=== PATIENT | female | born 1950 | race Caucasian/White ===

== ENCOUNTER → 2017-06-29 | Outpatient (CLI) | payer MEDICAID, MEDICARE ==
--- NOTE | 2017-06-29 10:05 | WOMENS IMAGING REPORT ---
EXAM DESCRIPTION: BONE DENSITY HIP/SPINE COMPLETED DATE/TIME: 06/29/2017 9:01 am REASON FOR STUDY: AGE-RELATED OSTEOPROSIS; M81.0 Z12.31 ENCNTR SCREEN MAMMOGRAM FOR MALIGNANT NEOPL ASM OF CELE M81.0 AGE-RELATED OSTEOPOROSIS W/O CURRENT PATHOLOGICAL FRAC COMPARISON: None. TECHNIQUE: Dual-Energy X-ray Absorptiometry (DEXA) of the AP Spine and Hip. LIMITATIONS: None. FINDINGS: LUMBAR SPINE: The bone mineral density (BMD) measured from L1-L4 in the AP projection correlates with a T-score of 0.7, which is normal as defined by the World Health Organization. HIP: The bone mineral density (BMD) measured in the left hip correlates with a T-score of 0.9, which is no rmal as defined by the World Health Organization. IMPRESSION: 1. LUMBAR SPINE: NORMAL. 2. HIP: NORMAL. COMMENT: The World Health Organization defines low BMD as follows: T-score: Normal: Greater than -1.0 Osteopenia: Between -1.0 and -2.5 Osteoporosis: Less than -2.5 without fractures Established osteoporosis: Less than -2.5 with fractures In general, you may wish to consider: Diagnosis Treatment Follow-up DEXA Normal BMD Prevention 2-3 years Osteopenia Prevention/Therapy 1-2 years Osteoporosis Therapy Yearly TECHNICAL DOCUMENTATION: JOB ID: [id number] [employer]- All Rights Reserved Reading location - IP/workstation name: [email or web address]
--- NOTE | 2017-06-29 11:19 | WOMENS IMAGING REPORT ---
EXAM DESCRIPTION: 3D SCREENING MAMMO BILAT COMPLETED DATE/TIME: 06/29/2017 9:01 am REASON FOR STUDY: ROUTINE SCREENING;Z12.31 Z12.31 ENCNTR SCREEN MAMMOGRAM FOR MALIGNANT NEOPLASM OF CELE M81.0 AGE-RELATED OSTEOPOROSIS W/O CURRENT PATHOLOGICAL FRAC COMPARISON: 10/17/2015 TECHNIQUE: Standard craniocaudal and mediolateral oblique views of each breast recorded using digita l acquisition and breast tomosynthesis. LIMITATIONS: None. FINDINGS: RIGHT BREAST MASSES: Spiculated mass upper outer quadrant about 7 cm deep to the nipple. Associated architectural distortion and microcalcifications. CALCIFICATIONS: See above. ARCHITECTURAL DISTORTION: See above. DEVELOPING DENSITY: None. ASYMMETRY: None noted. OTHER: No other significant findings. LEFT BREAST MASSES: Well-circumscribed mass lower inner quadrant about 7.8 cm deep to the nipple. Central calcif ications. CALCIFICATIONS: See above. ARCHITECTURAL DISTORTION: None. DEVELOPING DENSITY: None. ASYMMETRY: None noted. OTHER: No other significant findings. Read with the assistance of CAD. .[facility] - R2 Cenova Version 1.3 .[facility] Imaging - R2 Cenova Version 1.3 .[facility] Imaging - R2 Cenova Version 2.4 .[facility]2 Cenova Version 2.4 .[facility] - R2 Wireline Field Operator Version 9.2 IMPRESSION: Suspicious mass in the right breast. 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 BREAST DENSITY: b. There are scattered areas of fibroglandular density. BIRAD: 0 Incomplete: Needs Additional Imaging Evaluation and/or prior Mammograms for Comparison. RECOMMENDATION: RECOMMENDED FOLLOW-UP: Ultrasound of both breasts. The patient will be contacted for additional imaging. COMMENT: The patient has been notified of the results by letter per SA requirements. Additional no tification policies are in place for contacting patient with suspicious or incomplete findings. Quality ID #[id number]: The [employer] recommends an annual screening mammogram for women aged 40 years or over. This facility utilizes a reminder system to ensure that all patients receive reminder letters, and/or direct phone calls for appointments. This includes reminders for routine scr eening mammograms, diagnostic mammograms, or other Breast Imaging Interventions when appropriate. Th is patient will be placed in the appropriate reminder system. The [employer] (ACR) has developed recommendations for screening MRI of the breast s in certain patient populations, to be used in conjunction with mammography. Breast MRI surveillanc e may be appropriate for women with more than 20% lifetime risk of developing breast cancer as deter mined by genetic testing, significant family history of the disease, or history of mantle radiation f or Hodgkins Disease. ACR Practice Guidelines 2008. DBT Technology DBT is a type of tomographic mammography. With conventional mammography, overlapping breast tissue ma y make lesions difficult to detect, even with good compression. DBT uses an x-ray tube that rotates a round the breast, taking images at different angles. These images are then combined to create thin sl ices of the breast that the radiologist can view as a 3D reconstruction. The [employer] unit can perform full-field digital mammograms (2D imaging); or DBT (3D imaging); or both, in a combination mode that quickly performs both the mammogram and the tomosynthesis scan while the breast is still compressed. PQRS 6045F: Fluoroscopic imaging is not utilized for breast tomosynthesis. TECHNICAL DOCUMENTATION: FINDING NUMBER: (1) ASSESSMENT: (1) JOB ID: [id number] [employer]- All Rights Reserved Reading location - IP/workstation name: [facility]
== END ==
LOC: WI 08:31
PROVIDERS: ATTEND Physician Assistant
DX: Z12.31 Encounter for screening mammogram for malignant neoplasm of breast (principal); N63.13 Unspecified lump in the right breast, lower outer quadrant; N63.24 Unspecified lump in the left breast, lower inner quadrant; M81.0 Age-related osteoporosis without current pathological fracture
CPT/HCPCS: 77063; 77067; 77080

== ENCOUNTER → 2017-07-08 | Outpatient (CLI) | payer MEDICARE ==
--- NOTE | 2017-07-08 18:10 | WOMENS IMAGING REPORT ---
EXAM DESCRIPTION: U/S BREAST UNILAT LIMITED COMPLETED DATE/TIME: 07/08/2017 1:16 pm REASON FOR STUDY: UNSPECIFIED LUMP; N63.11 N63.24; N63.11, N63.24 N63.11 UNSPECIFIED LUMP IN THE RI GHT BREAST, UPPER OUTER ESTHELA COMPARISON: None. TECHNIQUE: Real-time and static grayscale imaging performed of the right and left breast and axilla targeted to the area of mammographic concern. Selected color Doppler images recorded. LIMITATIONS: None. FINDINGS: Ultrasound of the right breast and axilla: Right breast ultrasound demonstrates a spiculated solid mass with irregular margins and internal calc ifications highly suspicious for malignancy. This measures about 3 x 2.5 cm in size. Ultrasound-dada ded core biopsy, with post biopsy clip placement and follow-up two-view mammogram recommended. Ultrasound of the right axilla demonstrates no worrisome enlarged lymph nodes. Ultrasound of the left breast and axilla: Left breast ultrasound demonstrates a well-circumscribed hypoechoic solid nodule, 14 mm in size in th e medial left breast 9 to 10 o'clock position. This most likely represents a fibroadenoma. A well-c ircumscribed malignant nodule could not entirely be excluded. Ultrasound-guided core biopsy of this nodule with post biopsy clip placement and follow-up two-view mammogram recommended. Ultrasound of the left axilla demonstrates no worrisome enlarged lymph nodes. IMPRESSION: Right breast mass identified 06/29/2017 on mammograms/ tomosynthesis is highly suspicious for malignancy at ultrasound. Ultrasound-guided core biopsy, post biopsy clip placement with follow -up two-view mammogram recommended Well-circumscribed 14 mm nodule left breast most likely represents a fibroadenoma. Well circumscribe d malignant nodule could not entirely be excluded. Ultrasound-guided core biopsy of this nodule with post biopsy clip placement and follow-up two-view mammogram recommended. BIRAD: 5 Highly suggestive of malignancy. Appropriate action should be taken. RECOMMENDATION: RECOMMENDED FOLLOW-UP: Bilateral ultrasound-guided core biopsies with post biopsy cl ip placement COMMENT: These findings were discussed with the patient and her daughter. They understand in the fo r ultrasound-guided biopsy. The patient and her daughter are amenable to ultrasound-guided core biop sy being performed at [facility]. These findings were also discussed with JOSE Hensley [employer] (ACR) has developed recommendations for screening MRI of the breast s in certain patient populations, to be used in conjunction with mammography. Breast MRI surveillanc e may be appropriate for women with more than 20% lifetime risk of developing breast cancer as deter mined by genetic testing, significant family history of the disease, or history of mantle radiation f or Hodgkins Disease. ACR Practice Guidelines 2008. TECHNICAL DOCUMENTATION: JOB ID: [id number] [employer]- All Rights Reserved Reading location - IP/workstation name: [email or web address]
== END ==
LOC: WI 12:30
PROVIDERS: ATTEND Physician Assistant
DX: N63.11 Unspecified lump in the right breast, upper outer quadrant (principal); N63.24 Unspecified lump in the left breast, lower inner quadrant
CPT/HCPCS: 76642

== ENCOUNTER → 2017-07-21 | Day surgery (SDC) | payer MEDICARE, MEDICAID ==
[~2017-07-21] MED LIST: LIDOCAINE 1% INJ-PF (10 MG/ML) 30 ML SDV ONE
--- NOTE | 2017-07-24 11:10 | WOMENS IMAGING REPORT ---
EXAM DESCRIPTION: U/S BREAST BX; BILAT DIG DX MAMMO NO CHG COMPLETED DATE/TIME: 07/21/2017 2:25 pm; 07/21/2017 2:06 pm REASON FOR STUDY: INCONCLUSIVE FINDINGS ON DX; BILAT S/P US BX FOR CLIP PLACEMENT R92.8 OTH ABN AND INCONCLUSIVE FINDINGS ON DX IMAGING OF CELE COMPARISON: Prior mammograms 2015, 2018 Bilateral breast ultrasound 06/29/2017 TECHNIQUE: Bilateral breast biopsy was performed with ultrasound guidance, followed by postprocedure bilateral two-view mammograms Right breast: The procedure was discussed with the patient and the patient agreed to proceed. The patient was scanned and the area of interest in the 11 o'clock position 6 to 7 cm from the nipple of the right breast was localized. This correlates with the area of concern on prior imaging studie s. This area was targeted for ultrasound-guided core biopsy. After sterile skin prep and 3.5 mL local lidocaine 1% for skin and deep tissue anesthesia, a 14 gauge coaxial core biopsy needle was used to obtain several cores of tissue from the lesion. Under ultras ound guidance, a ribbon clip was placed in the areas sampled. There were no immediate post-procedure complications. Left breast: The procedure was discussed with the patient and the patient agreed to proceed. The patient was scanned and the area of interest in the 9 to 10 o'clock position 7 cm from the nipple of the left breast was localized. This correlates with the area of concern on prior imaging studies . This area was targeted for ultrasound-guided core biopsy. After sterile skin prep and 3.5 mL local lidocaine 1% for skin and deep tissue anesthesia, a 14 gauge coaxial core biopsy needle was used to obtain several cores of tissue from the lesion. Under ultras ound guidance, a ribbon clip was placed in the areas sampled. There were no immediate post-procedure complications. MAMMOGRAM: Post-procedure bilateral two-view mammograms were acquired in the digital mammogram suite. The clips were in the expected location. No significant hematoma. Pathology yields a diagnosis of poorly differentiated invasive ductal carcinoma on the right side. Pathology yielded a diagnosis of benign breast tissue with fibrocystic changes on the left. Most lik foreign represents an old fibroadenoma Pathology is concordant. LIMITATIONS: None. FINDINGS: Ultrasound guided breast biopsy as described above. POST PROCEDURE MAMMOGRAMS FOR MARKER PLACEMENT: Yes IMPRESSION: ULTRASOUND-GUIDED CORE BIOPSY OF THE RIGHT BREAST YIELDS A DIAGNOSIS OF MALIGNANCY. POO RLY DIFFERENTIATED INVASIVE DUCTAL CARCINOMA FROM RIGHT BREAST BIOPSY. BI-RADS 6, KNOWN MALIGNANCY. APPROPRIATE ACTION SHOULD BE TAKEN. ULTRASOUND-GUIDED CORE BIOPSY OF THE LEFT BREAST YIELDS A DIAGNOSIS OF BENIGN FIBROCYSTIC CHANGES. B I-RADS 2, BENIGN. COMMENT: COMMUNICATION: RESULTS WERE DISCUSSED WITH SOFIE WAYNE 07/23/2017, 1315 HOURS Patient medication list reviewed: Yes- Quality ID# [id number]:Eligible professional attests to documenting i n the medical record they obtained, updated, or reviewed the patient's current medications. TECHNICAL DOCUMENTATION: JOB ID: [id number] [employer]- All Rights Reserved Reading location - IP/workstation name: [facility]-[email or web address]
== END ==
LOC: WI 12:40
PROVIDERS: ATTEND Physician Assistant
DX: C50.911 Malignant neoplasm of unspecified site of right female breast (principal); Z17.0 Estrogen receptor positive status [ER+]; N60.12 Diffuse cystic mastopathy of left breast; R92.8 Other abnormal and inconclusive findings on diagnostic imaging of breast
CPT/HCPCS: 88342 ×2; 88341 ×2; 88305 ×2; 88313 ×2; 19083; J3490

== ENCOUNTER → 2017-08-04 | Day surgery (SDC) | payer MEDICARE ==
[~2017-08-04] MED LIST changes: -LIDOCAINE 1% INJ-PF (10 MG/ML) 30 ML SDV ONE; +LIDOCAINE 2% INJ (20 MG/ML) 20 ML MDV ONE
--- NOTE | 2017-08-05 16:58 | WOMENS IMAGING REPORT ---
EXAM DESCRIPTION: U/S BREAST BX; RIGHT DIG DX MAMMO NO CHG COMPLETED DATE/TIME: 08/04/2017 11:13 am; 08/04/2017 10:52 am REASON FOR STUDY: MALIGNANT NEOPLASM OF UNSPEC SITE OF RT FEMALE BREAST; C50.911 S/P US BREAST BX FO R CLIP PLACEMENT C50.911 MALIGNANT NEOPLASM OF UNSP SITE OF RIGHT FEMALE ZAID COMPARISON: Multiple previous mammograms and ultrasounds June and July 2017 TECHNIQUE: The procedure was discussed with the patient and the patient agreed to proceed. The patient was scanned and the area of interest in the 4-5 o'clock position 7 cm from the nipple of the right breast was localized. This correlates with the area of concern on prior imaging studies. T his area was targeted for ultrasound-guided core biopsy. After sterile skin prep and 1 mL local lidocaine 1% for skin and deep tissue anesthesia, a 14 gauge c oaxial core biopsy needle was used to obtain several cores of tissue from the lesion. Under ultrasou nd guidance, a ribbon clip was placed in the areas sampled. There were no immediate post-procedure c omplications. MAMMOGRAM: Post-procedure two view mammogram was acquired in the digital mammogram suite. The clip wa s in the expected location. No significant hematoma. Pathology yields a diagnosis of invasive ductal carcinoma Pathology is concordant. LIMITATIONS: None. FINDINGS: Ultrasound guided breast biopsy as described above. POST PROCEDURE MAMMOGRAMS FOR MARKER PLACEMENT: Yes IMPRESSION: ULTRASOUND-GUIDED CORE BIOPSY OF THE RIGHT BREAST YIELDS A DIAGNOSIS OF INVASIVE DUCTAL CARCINOMA. BI-RADS 6, KNOWN MALIGNANCY, APPROPRIATE ACTION SHOULD BE TAKEN. COMMENT: COMMUNICATION: DR. HENRY NOTIFIED Patient medication list reviewed: Yes- Quality ID# [id number]:Eligible professional attests to documenting i n the medical record they obtained, updated, or reviewed the patient's current medications. TECHNICAL DOCUMENTATION: JOB ID: [id number] [employer]- All Rights Reserved Reading location - IP/workstation name: [email or web address]
--- NOTE | 2017-08-05 16:58 | WOMENS IMAGING REPORT ---
EXAM DESCRIPTION: U/S BREAST BX; RIGHT DIG DX MAMMO NO CHG COMPLETED DATE/TIME: 08/04/2017 11:13 am; 08/04/2017 10:52 am REASON FOR STUDY: MALIGNANT NEOPLASM OF UNSPEC SITE OF RT FEMALE BREAST; C50.911 S/P US BREAST BX FO R CLIP PLACEMENT C50.911 MALIGNANT NEOPLASM OF UNSP SITE OF RIGHT FEMALE ZAID COMPARISON: Multiple previous mammograms and ultrasounds June and July 2017 TECHNIQUE: The procedure was discussed with the patient and the patient agreed to proceed. The patient was scanned and the area of interest in the 4-5 o'clock position 7 cm from the nipple of the right breast was localized. This correlates with the area of concern on prior imaging studies. T his area was targeted for ultrasound-guided core biopsy. After sterile skin prep and 1 mL local lidocaine 1% for skin and deep tissue anesthesia, a 14 gauge c oaxial core biopsy needle was used to obtain several cores of tissue from the lesion. Under ultrasou nd guidance, a ribbon clip was placed in the areas sampled. There were no immediate post-procedure c omplications. MAMMOGRAM: Post-procedure two view mammogram was acquired in the digital mammogram suite. The clip wa s in the expected location. No significant hematoma. Pathology yields a diagnosis of invasive ductal carcinoma Pathology is concordant. LIMITATIONS: None. FINDINGS: Ultrasound guided breast biopsy as described above. POST PROCEDURE MAMMOGRAMS FOR MARKER PLACEMENT: Yes IMPRESSION: ULTRASOUND-GUIDED CORE BIOPSY OF THE RIGHT BREAST YIELDS A DIAGNOSIS OF INVASIVE DUCTAL CARCINOMA. BI-RADS 6, KNOWN MALIGNANCY, APPROPRIATE ACTION SHOULD BE TAKEN. COMMENT: COMMUNICATION: DR. HENRY NOTIFIED Patient medication list reviewed: Yes- Quality ID# [id number]:Eligible professional attests to documenting i n the medical record they obtained, updated, or reviewed the patient's current medications. TECHNICAL DOCUMENTATION: JOB ID: [id number] [employer]- All Rights Reserved Reading location - IP/workstation name: [facility]-RR
== END ==
LOC: WI 09:39
PROVIDERS: ATTEND Surgery
DX: C50.911 Malignant neoplasm of unspecified site of right female breast (principal); Z17.0 Estrogen receptor positive status [ER+]
CPT/HCPCS: 88342 ×2; 88341 ×2; 88305 ×2; 19083; J3490

== ENCOUNTER 2017-09-16 08:15 | Day surgery (SDC) | payer MEDICARE, MEDICAID ==
[2017-09-08 10:31] LABS: HEMATOCRIT 35.1 % (36.0-47.0); HEMOGLOBIN 11.9 g/dL (12.0-15.5); MEAN CORPUSCULAR HEMOGLOBIN 32.4 pg (27.0-33.4); MEAN CORPUSCULAR HGB CONC 34.1 g/dL (32.0-36.0); MEAN CORPUSCULAR VOLUME 95 fl (80-97); PLATELET COUNT 297 10^3/uL (150-450); RED BLOOD COUNT 3.68 10^6/uL (3.72-5.28); RED CELL DISTRIBUTION WIDTH 12.8 % (11.5-14.0); WHITE BLOOD COUNT 9.4 10^3/uL (4.0-10.5)
[2017-09-08 10:56] LABS: ANION GAP 11 (5-19); BLOOD UREA NITROGEN 15 mg/dL (7-20); CALCIUM 9.8 mg/dL (8.4-10.2); CARBON DIOXIDE 27 mmol/L (22-30); CHLORIDE 103 mmol/L (98-107); GLUCOSE 101 mg/dL (75-110); POTASSIUM 4.6 mmol/L (3.6-5.0); SODIUM 141.2 mmol/L (137-145)
--- NOTE | 2017-09-08 13:22 | EKG REPORT ---
SEVERITY:- NORMAL ECG - SINUS RHYTHM : Confirmed by: Niraj Castillo MD 08-Sep-2017 13:22:35
[~2017-09-16 08:15] MED LIST changes: +CEFAZOLIN 1 GM/D5W RTU 1 GM/50 ML RTUPB IV PRN; +LACTATED RINGERS 1000 ML IV PRN; +LIDOCAINE 0.5% INJ-PF (5 MG/ML) 50 ML SDV SUBCUT PRN; -LIDOCAINE 2% INJ (20 MG/ML) 20 ML MDV ONE; +LIDOCAINE 4% TRANSPARENT DRESSING 5 GM KIT TP PRN
[2017-09-16] MEDS ORDERED: ONDANSETRON 4 MG TAB.RAPDIS ONE (11:33)
[2017-09-16] MEDS ORDERED: ONDANSETRON 4 MG TAB.RAPDIS PO ONE (11:45)
[2017-09-16] MEDS ORDERED: GABAPENTIN 400 MG CAPSULE PO ONE (11:45)
[2017-09-16] MEDS ORDERED: DEXAMETHASONE SOD PHOSPHATE INJ 4 MG/1 ML VIAL ONE (12:28)
[2017-09-16] MEDS ORDERED: GLYCOPYRROLATE INJ 0.4 MG/2 ML VIAL ONE (12:28)
[2017-09-16] MEDS ORDERED: SUCCINYLCHOLINE CHLORIDE INJ 200 MG/10 ML VIAL ONE (12:28)
[2017-09-16] MEDS ORDERED: KETOROLAC TROMETHAMINE 60 MG/2 ML SDV ONE (12:28)
--- NOTE | 2017-09-16 12:29 | RADIOLOGY REPORT (SQ) ---
EXAM DESCRIPTION: NM LYMPHATICS/LYMPH GLANDS COMPLETED DATE/TIME: 09/16/2017 10:36 am REASON FOR STUDY: MAGLIGNANT NEOPLASM OF R BREAST C50.911 MALIGNANT NEOPLASM OF UNSP SITE OF RIGHT FEMALE ZAID Z79.01 [facility] (CURRENT) USE OF ANTICOAGULANTS COMPARISON: PREVIOUS MAMMOGRAMS AND ULTRASOUNDS, PREVIOUS RIGHT BREAST BIOPSIES. RADIONUCLIDE AND DOSE: 571 microcuries TC-99m tilmanocept - Lymphoseek. The route of agent administration: Subcutaneous in the skin. TECHNIQUE: The skin of the right breast was prepped in sterile fashion. The radiopharmaceutical was administered in equally divided doses in the periareolar breast. LIMITATIONS: None. FINDINGS: Images demonstrate activity at the injection site. Migration of activity towards the righ t axilla IMPRESSION: ADMINISTRATION OF RADIOPHARMACEUTICAL FOR SENTINEL LYMPH NODE EVALUATION. TECHNICAL DOCUMENTATION: JOB ID: [id number] [employer]- All Rights Reserved Reading location - IP/workstation name: [email or web address]
[2017-09-16] MEDS ORDERED: MIDAZOLAM 2 MG/2 ML INJ ONE (13:09)
[2017-09-16] MEDS ORDERED: FENTANYL CITRATE INJ/PF 100 MCG/2 ML AMPUL ONE ×2 (13:09→14:50)
[2017-09-16] MEDS ORDERED: ACETAMINOPHEN 1,000 MG/100 ML RTUPB IV ONE (13:09)
[2017-09-16] MEDS ORDERED: PROPOFOL INJ 200 MG/20 ML VIAL IV ONE (13:09)
[2017-09-16] MEDS ORDERED: LIDOCAINE 1%/EPINEPHRINE INJ 20 ML VIAL ONE (13:19)
[2017-09-16] MEDS ORDERED: METHYLENE BLUE 50 MG/10 ML AMPULE ONE (13:19)
[2017-09-16] MEDS ORDERED: MICROFIBRILLAR COLLAGEN 1 GM PACK ONE (13:23)
[2017-09-16] MEDS ORDERED: EPHEDRINE SULFATE INJ 50 MG/1 ML AMPULE ONE (14:04)
[2017-09-16] MEDS ORDERED: FENTANYL CITRATE INJ/PF 100 MCG/2 ML AMPUL IV PRN ×3 (14:10)
[2017-09-16] MEDS ORDERED: OXYCODONE-ACETAMINOPHEN 5-325 MG TABLET PO PRN ×2 (14:10)
[2017-09-16] MEDS ORDERED: PROMETHAZINE HCL INJ 25 MG/1 ML VIAL IV PRN ×2 (14:10)
[2017-09-16] MEDS ORDERED: DIPHENHYDRAMINE HCL 50 MG/ML VIAL IV PRN (14:10)
[2017-09-16] MEDS ORDERED: MORPHINE SULFATE 10 MG/ML INJ IV PRN (14:10)
[2017-09-16] MEDS ORDERED: MEPERIDINE HCL/PF INJ 25 MG/1 ML DISP.SYRIN IV PRN (14:10)
--- NOTE | 2017-09-16 15:41 | Operative Report ---
Operative Report DATE OF SURGERY: 09/16/17 PREOPERATIVE DIAGNOSIS: Multicentric right breast cancer, ER positive MS positive HER-2 negative POSTOPERATIVE DIAGNOSIS: Same OPERATION: 1. Right mastectomy with drain placement. 2. [place] lymph node biopsy right axilla 3 SURGEON: LILY MASON [employer] TECHNICIAN: NELLIE GARCIA ANESTHESIA: GA TISSUE REMOVED OR ALTERED: Right breast; sentinel lymph nodes right axilla 3 COMPLICATIONS: None ESTIMATED BLOOD LOSS: 45 cc INTRAOPERATIVE FINDINGS: See below PROCEDURE: The patient was taken from ambulatory surgery to the radiology suite where she underwent lymphoscintigraphy of the right breast and axilla. Findings are significant for increased uptake into the right axilla without delay. The patient was then taken to the operating room where general anesthesia was induced. Right arm was abducted, right breast and axilla prepped and draped in sterile fashion with Betadine. Surgical plan and surgical timeout were conducted. The right breast was injected at the 10 o'clock position area [place] border with approximately 3 cc of methylene blue, full strength. The right breast was massaged. Markings were made on the skin with a marker, and then the skin incised for a elliptical incision of the areole complex and the majority of the right breast. Superior and inferior skin flaps were raised with electrocautery. This was a very large breast. The breast was taken off of the chest wall from the infraclavicular region, the parasternal region medially, and the inferior border of the pectoralis muscle inferiorly. Of note the patient had an element of pectus excavatum. The dissection was carried forth to include the lateral fatty tissue and breast parenchyma involving the tail of Ortiz. Eventually the breast was amputated just beneath the true axilla. The breast was marked with a short suture in the superior position long suture in the lateral position and sent to pathology for permanent analysis. We now proceeded with sentinel lymph node biopsy. 3 sentinel lymph nodes were harvested all Level One. They were all adjacent to the chest wall lateral to the pectoralis muscle. First node was both hot and blue at the lowest position anatomically with an in vivo count of 13,431 and an ex vivo count of 10,453. The second lymph node was not blue but hot with an in vivo count of 8277 and an ex vivo count of 5949. A third level 1 hot but not blue sentinel node was harvested from the same anatomic region, with an in vivo count of 1258 and an ex vivo count of 2166. Residual counts were negligible. We felt that the lymph node harvest and the operation was complete. We checked the wound for any mechanical bleeding. Sponge and needle counts are correct. A large Finn drain was placed in the inferior skin flap, attached to the skin with 2-0 Prolene suture and midline wound closed with 2-0 Vicryl and Dermabond glue. Patient tolerated the procedure well, extubated, and taken recovery room stable condition. The physician assistant scientist, Ms. Guido, provided assistance during this case by: Assisting with retracting tissue, instillation of local anesthesia and closure of skin incisions.
--- NOTE | 2017-09-16 15:47 | Discharge Summary ---
Discharge Summary (SDC) - Discharge Final Diagnosis: Right breast cancer Date of Surgery: 09/16/17 Discharge Date: 09/16/17 Condition: Stable Treatment or Instructions: [facility] [address] [place] [id number] Care Instructions Following Your Mastectomy Activities: Resume normal activities when you feel comfortable. It is best to remain as active as possible to speed your recovery. It is common to experience some fatigue after surgery and you may find that short naps are helpful. Avoid strenuous activity such as weight lifting, tennis, etc at your surgical site for two weeks. Perform gentle arm exercises daily and do not favor your operative arm to due increased risk of mobility issues postoperatively. No driving for 7 days after surgery. Do not drive if you are taking pain medication other than Tylenol or Ibuprofen. No swimming, tub baths or soaking in a hot tub for 4 weeks. There are no dietary restrictions. Do not smoke as this impairs wound healing. Surgical Site care: You may shower in 48 hours. Leave skin glue intact. Do not scrub the incision. Pat the area dry with a towel. You do not need to recover the wound although some patients find that they feel more comfortable using a light dressing for a few days to absorb any minimal drainage which may occur. Many patients also find that keeping a dressing around the drain exit site is helpful to absorb any drainage which may leak around the tubing. If you use a dressing in this manner change it at least every day. Do not use heating pad or apply an ice pack to the operative site. You may apply deodorant if you are careful to avoid getting it on the wound itself. Empty the bulbs attached to the drain every 12 hours and measure the fluid output separately from each drain. Please also strip each drain each time you empty it to prevent clogging. Keep a record of the output and bring this record with you each time you come to the office for postoperative care. A drain is ready to be removed when its output is 30 mL per 24 hours per drain for 2 consecutive days. Please call the office to inform our staff that you need to come in for drain removal. Medications: You may take Toradol 10 mg one pill by mouth every six hours as needed for pain. Resume all of your normal prescription medications after your surgery unless instructed otherwise. Follow-up: Call our office at to make a follow-up appointment in 10-14 days. Your doctor will call to discuss the pathology report with you as soon as it is available. Concerns: If you had a sentinel lymph node biopsy with your mastectomy, your urine may have a greenish discoloration. This is normal and will resolve as the blue dye slowly leaves your system. If you notice significant leakage around the drains , this is not normal. The drains may be clogged. Please call our office to come in immediately for the drains to be checked. Some bruising may occur and will go away over time. If you have a fever of 101.5 or greater, chills, redness at the incision site, excessive drainage from your wound or severe pain not relieved by pain medication, call your doctor. A physician is available 24 hours a day 7 days a week in addition to regular office hours. If problems arise after normal office hours please call the hospital at . Please call if you have any questions or concerns. Prescriptions: Ketorolac Tromethamine [Toradol 10 mg Tablet] 10 mg PO Q6HP PRN #20 tablet PRN Reason: Referrals: ESMER GARNER MD [Primary Care Provider] - Discharge Diet: As Tolerated Discharge Activity: No Lifting/Push/Pulling, Walk Frequently Report the Following to Your Physician Immediately: Increase in Pain, Fever over 101 Degrees, Unusual Bleeding, Redness, Swelling, Warmth, Drainage-Foul Smelling
[2017-09-16] MEDS: FENTANYL CITRATE INJ/PF 100 MCG/2 ML AMPUL ONE ×2 (15:58→16:03)
[2017-09-16] MEDS: HYDROMORPHONE HCL INJ/PF 2 MG/ML AMPULE ONE ×3 (16:15→16:45)
[2017-09-16] MEDS: OXYCODONE-ACETAMINOPHEN 5-325 MG TABLET PO PRN (22:26)
[2017-09-17] MEDS: OXYCODONE-ACETAMINOPHEN 5-325 MG TABLET PO PRN (06:25)
[2017-09-17 09:20] VITALS: BP 136/66
== END 2017-09-17 09:40 | disposition home or self-care (01) ==
LOC: OROUT 08:15 → 2N 17:47 → OROUT 09-17 09:40
PROVIDERS: ATTEND Surgery
PROC: 07B50ZX Excision of Right Axillary Lymphatic, Open Approach, Diagnostic (ICD-10-PCS; 2017-09-16)
PROC: 0HBT0ZZ Excision of Right Breast, Open Approach (ICD-10-PCS; principal; 2017-09-16 12:00)
DX: C50.411 Malignant neoplasm of upper-outer quadrant of right female breast (principal); C50.311 Malignant neoplasm of lower-inner quadrant of right female breast; Z79.01 Long term (current) use of anticoagulants; Z17.0 Estrogen receptor positive status [ER+]; I10 Essential (primary) hypertension; E66.9 Obesity, unspecified; Z68.41 Body mass index [BMI] 40.0-44.9, adult
CPT/HCPCS: 93005; 36415 ×2; 84132; 85027; 80048; 88342 ×2; 88341 ×2; 88305 ×2; 88309 ×2; 78195; 93010; 19303; 38525; A9520; J2250; J0690; J1100; J3490 ×3; J1885; A9270 ×3; J3010; J1170; J0330; J2704; J0131; Q9968; 1610; S0119

== ENCOUNTER 2017-10-27 08:36 | Inpatient (IN) | payer MEDICARE, MEDICAID ==
--- NOTE | 2017-10-27 09:34 | ER Document Report ---
ED General - General Chief Complaint: Low Blood Pressure Stated Complaint: BLOOD PRESSURE ISSUE, DIZZY, WEAK Time Seen by Provider: 10/27/17 09:16 Mode of Arrival: Ambulatory Information source: Patient, Relative - daughter Notes: Presents to the emergency department with complaints of low blood pressure dizzy lightheaded feeling weak. Daughter reports that patient was very pale when she arrived to her house this morning. Patient had taken her blood pressure medication, lisinopril hydrochlorothiazide, her blood pressure was low 90/40 and is usually 160 systolic. Patient reports that on September 16 she had right mastectomy done. Since that time she has had a wound VAC in place. She reports she usually empties it twice a week. Over the weekend she had emptied it Thursday and Thursday. Patient also reports she had a fever of 102 this weekend. She reports slight cough and cold symptoms. Reports her appetite is been down. Patient also reports urinary urgency with very little output. TRAVEL OUTSIDE OF THE [place] IN LAST 30 DAYS: No - HPI Onset: This morning Onset/Duration: Sudden Quality of pain: No pain Severity: None Pain Level: Denies Associated symptoms: Weakness Exacerbated by: Standing Relieved by: Denies Similar symptoms previously: No Recently seen / treated by doctor: No - Related Data Allergies/Adverse Reactions: No Known Allergies Allergy (Verified 06/22/15 16:10) Past Medical History - General Information source: Patient - Social History Smoking Status: Unknown if Ever Smoked Cigarette use (# per day): No Frequency of alcohol use: None Drug Abuse: None Lives with: Alone Family History: Reviewed & Not Pertinent Patient has suicidal ideation: No Patient has homicidal ideation: No - Past Medical History Cardiac Medical History: Reports: Hx Hypertension Denies: Hx Coronary Artery Disease, Hx Heart Attack Pulmonary Medical History: Denies: Hx Asthma, Hx Bronchitis, Hx COPD, Hx Pneumonia Neurological Medical History: Denies: Hx Cerebrovascular Accident, Hx Seizures Malignancy Medical History: Reports: Hx Breast Cancer Musculoskeletal Medical History: Denies Hx Arthritis Past Surgical History: Reports: Hx Mastectomy, Hx Tubal Ligation - Immunizations Hx Diphtheria, Pertussis, Tetanus Vaccination: Yes - unsure Review of Systems - Review of Systems Notes: Review HPI for review of systems., All other systems negative Physical Exam - Vital signs Vitals: Temp Pulse Resp BP Pulse Ox 97.7 F 71 18 98/43 L 98 10/27/17 08:44 10/27/17 08:44 10/27/17 08:44 10/27/17 08:44 10/27/17 08:44 - Skin Skin Temperature: Warm Skin Moisture: Dry Skin Color: Normal Location of irregularity: Abdomen Character of irregularity: Other - Wound, surgical sponge in place for wound VAC. Some yellow discharge noted no odor no erythema or warmth around the site. healing area where patient reports she broke out from the tape on the dressing. Course - Re-evaluation Re-evalutation: 10/27/17 12:35 Dr. Peck in the emergency department assessed patient. Plans to admit her. - Vital Signs Vital signs: Temp Pulse Resp BP Pulse Ox 100.1 F 111 H 15 141/53 H 100 10/27/17 17:47 10/27/17 17:47 10/27/17 17:47 10/27/17 17:47 10/27/17 17:47 - Laboratory Result Diagrams: 10/27/17 09:32 10/27/17 09:32 Laboratory results interpreted by me: 10/27/17 10/27/17 09:32 09:32 WBC 18.5 H RBC 2.98 L Hgb 9.5 L Hct 28.2 L Seg Neutrophils % 84.1 H Lymphocytes % 5.5 L Absolute Neutrophils 15.6 H Absolute Monocytes 1.7 H Sodium 132.9 L Potassium 3.4 L Chloride 96 L BUN 21 H Est GFR (Non-Af Amer) 49 L Glucose 142 H Albumin 3.1 L - Diagnostic Test Radiology reviewed: Image reviewed, Reports reviewed - negative no acute infiltrates - EKG Interpretation by Me EKG shows normal: Sinus rhythm - Consults suhr Time consulted: 12:05 Consulted provider: will come to ER Discharge - Discharge Clinical Impression: Hypotension Qualifiers: Hypotension type: unspecified hypotension type Qualified Code(s): I95.9 - Hypotension, unspecified Condition: Stable Disposition: ADMITTED INPATIENT Admitting Provider: [facility]
[2017-10-27 09:49] LABS: ABSOLUTE BASOPHILS # (AUTO) 0.1 10^3/uL (0.0-0.2); ABSOLUTE EOSINOPHILS # (AUTO) 0.1 10^3/uL (0.0-0.6); ABSOLUTE MONOCYTES (AUTO) 1.7 10^3/uL (0.1-1.4); ABSOLUTE NEUT (AUTO) 15.6 10^3/uL (1.7-8.2); BASOPHILS % (AUTO) 0.6 % (0-2); EOSINOPHILS % (AUTO) 0.7 % (0-6); HEMATOCRIT 28.2 % (36.0-47.0); HEMOGLOBIN 9.5 g/dL (12.0-15.5); LYMPHOCYTES % (AUTO) 5.5 % (13-45); MEAN CORPUSCULAR HEMOGLOBIN 31.8 pg (27.0-33.4); MEAN CORPUSCULAR HGB CONC 33.6 g/dL (32.0-36.0); MEAN CORPUSCULAR VOLUME 95 fl (80-97); MONOCYTES % (AUTO) 9.1 % (3-13); PLATELET COUNT 372 10^3/uL (150-450); RED BLOOD COUNT 2.98 10^6/uL (3.72-5.28); RED CELL DISTRIBUTION WIDTH 13.3 % (11.5-14.0); SEGMENTED NEUTROPHILS % (AUTO) 84.1 % (42-78); TOTAL CELLS COUNTED % (AUTO) 100 %; WHITE BLOOD COUNT 18.5 10^3/uL (4.0-10.5)
[2017-10-27 09:51] LABS: VENOUS BLOOD BASE EXCESS 1.7 mmol/L; VENOUS BLOOD HCO3 27.6 mmol/L (20-32); VENOUS BLOOD PCO2 49.7 mmHg (35-63); VENOUS BLOOD PH 7.36 (7.30-7.42)
[2017-10-27 10:00] LABS: INTERNATIONAL RATION (INR) 1.09; PROTHROMBIN TIME 14.7 SEC (11.4-15.4)
--- NOTE | 2017-10-27 10:07 | RADIOLOGY REPORT (SQ) ---
EXAM DESCRIPTION: CHEST SINGLE VIEW COMPLETED DATE/TIME: 10/27/2017 9:57 am REASON FOR STUDY: slight cough, fever COMPARISON: None. EXAM PARAMETERS: NUMBER OF VIEWS: One view. TECHNIQUE: Single frontal radiographic view of the chest acquired. RADIATION DOSE: NA LIMITATIONS: None. FINDINGS: LUNGS AND PLEURA: No opacities, masses or pneumothorax. No pleural effusion. Lateral aspe ct of the left lower lung zone suboptimally visualized because of portable technique and body habitus . Followup PA and lateral may be helpful to exclude abnormality at this level. MEDIASTINUM AND HILAR STRUCTURES: No masses. Contour normal. HEART AND VASCULAR STRUCTURES: Heart normal in size. Normal vasculature. BONES: No acute findings. HARDWARE: None in the chest. OTHER: No other significant finding. IMPRESSION: NO ACUTE RADIOGRAPHIC FINDING IN THE CHEST. Suboptimal visualization lateral aspect the left lung base. Followup PA and lateral may be helpful TECHNICAL DOCUMENTATION: JOB ID: [id number] [employer]- All Rights Reserved Reading location - IP/workstation name: [email or web address]
[2017-10-27 10:13] LABS: ALANINE AMINOTRANSFERASE 23 U/L (9-52); ALBUMIN 3.1 g/dL (3.5-5.0); ALKALINE PHOSPHATASE 62 U/L (38-126); ANION GAP 13 (5-19); ASPARTATE AMINO TRANSFERASE 21 U/L (14-36); BILIRUBIN,DIRECT 0.4 mg/dL (0.0-0.4); BILIRUBIN,TOTAL 0.6 mg/dL (0.2-1.3); BLOOD UREA NITROGEN 21 mg/dL (7-20); CARBON DIOXIDE 24 mmol/L (22-30); CHLORIDE 96 mmol/L (98-107); GLUCOSE 142 mg/dL (75-110); POTASSIUM 3.4 mmol/L (3.6-5.0); SODIUM 132.9 mmol/L (137-145); TOTAL PROTEIN 6.5 g/dL (6.3-8.2)
[2017-10-27 10:45] LABS: APPEARANCE,URINE CLEAR; BILIRUBIN,URINE NEGATIVE (NEGATIVE); COLOR,URINE YELLOW; GLUCOSE, URINE NEGATIVE (NEGATIVE); KETONES,URINE NEGATIVE (NEGATIVE); LEUKOCYTE ESTERASE,URINE NEGATIVE (NEGATIVE); NITRITE,URINE NEGATIVE (NEGATIVE); PROTEIN,URINE NEGATIVE (NEGATIVE); URINE SPECIFIC GRAVITY 1.006; UROBILINOGEN,URINE NEGATIVE mg/dL (<2.0)
--- NOTE | 2017-10-27 10:50 | RADIOLOGY REPORT (SQ) ---
EXAM DESCRIPTION: CHEST 2 VIEWS COMPLETED DATE/TIME: 10/27/2017 10:42 am REASON FOR STUDY: FEVER COMPARISON: AP chest 10/27/2017 EXAM PARAMETERS: NUMBER OF VIEWS: two views TECHNIQUE: Digital Frontal and Lateral radiographic views of the chest acquired. RADIATION DOSE: NA LIMITATIONS: none FINDINGS: LUNGS AND PLEURA: No opacities, masses or pneumothorax. No pleural effusion. MEDIASTINUM AND HILAR STRUCTURES: No masses or contour abnormalities. HEART AND VASCULAR STRUCTURES: Borderline cardiomegaly BONES: No acute findings. HARDWARE: Surgical clips right chest post right mastectomy. OTHER: No other significant finding. IMPRESSION: No acute infiltrates TECHNICAL DOCUMENTATION: JOB ID: [id number] [employer]- All Rights Reserved Reading location - IP/workstation name: [email or web address]
[2017-10-27] MEDS ORDERED: PIPERACILLIN/TAZOBACTAM 2.25 GM VIAL IV ONE (12:01)
[2017-10-27] MEDS ORDERED: LORAZEPAM 0.5 MG TABLET PO ONE (13:23)
[2017-10-27] MEDS ORDERED: NORMAL SALINE 1000 ML 1,000 ML IV ONE (13:24)
[2017-10-27] MEDS ORDERED: ACETAMINOPHEN 325 MG TABLET PO PRN (13:26)
[2017-10-27] MEDS: PIPERACILLIN SODIUM/TAZOBACTAM 3.375 GM in NORMAL SALINE 100 ML IV SCH ×2 (14:54→20:07)
[2017-10-27] MEDS ORDERED: ENOXAPARIN SODIUM INJ 40 MG/0.4 ML DISP.SYRIN SUBCUT ONE (15:00)
[2017-10-27] MEDS: POTASSI CL 20 MEQ/D5-1/2NS 1L 1,000 ML IV PRN (16:07)
[2017-10-27] MEDS: GABAPENTIN 400 MG CAPSULE PO SCH (18:32)
--- NOTE | 2017-10-27 22:13 | EKG REPORT ---
SEVERITY:- ABNORMAL ECG - SINUS RHYTHM NONSPECIFIC T ABNORMALITIES, LATERAL LEADS : Confirmed by: Bina Mata 27-Oct-2017 22:12:36
[2017-10-28] MEDS: POTASSI CL 20 MEQ/D5-1/2NS 1L 1,000 ML IV PRN ×3 (01:58→21:56)
[2017-10-28] MEDS: PIPERACILLIN SODIUM/TAZOBACTAM 3.375 GM in NORMAL SALINE 100 ML IV SCH ×4 (02:00→21:54)
[2017-10-28] MEDS ORDERED: TRAMADOL HCL 50 MG TABLET PO PRN (08:50)
[2017-10-28] MEDS ORDERED: ENOXAPARIN SODIUM INJ 40 MG/0.4 ML DISP.SYRIN SUBCUT SCH (10:00)
[2017-10-28] MEDS: GABAPENTIN 400 MG CAPSULE PO SCH ×2 (10:01→17:46)
--- NOTE | 2017-10-28 10:21 | PDOC PROGRESS REPORT ---
Subjective Progress Note for:: 10/28/17 Subjective:: This is a 66-year-old female status post right mastectomy. Her course has been complicated by necrosis of the skin flap, requiring debridement. She had a VAC dressing in place, that became dysfunctional. Patient was admitted for right mastectomy surgical site infection, dehydration, and malaise. Patient still reports fatigue and malaise. She denies chest pain, shortness of breath, fevers , chills, nausea, vomiting, melena, hematochezia, abdominal pain, dizziness, orthostasis. Reason For Visit: DEHYDRATION,WOUND INFECTION,HYPOTENSION Physical Exam Vital Signs: Temp Pulse Resp BP Pulse Ox 98.7 F 72 16 112/49 L 100 10/28/17 07:56 10/28/17 07:56 10/28/17 07:56 10/28/17 07:56 10/28/17 07:56 Intake & Output 10/27/17 10/28/17 10/29/17 06:59 06:59 06:59 Intake Total 3065 Balance 3065 Weight 110.9 kg General appearance: PRESENT: no acute distress Head exam: PRESENT: atraumatic, normocephalic Eye exam: PRESENT: EOMI, PERRLA. ABSENT: scleral icterus Neck exam: ABSENT: tenderness, thyromegaly, tracheal deviation Respiratory exam: PRESENT: symmetrical, unlabored. ABSENT: chest wall tenderness, wheezes Pulses: PRESENT: normal radial pulses Psychiatric exam: ABSENT: agitated, anxious, depressed Focused psych exam: ABSENT: delusional Skin exam: PRESENT: other - Large wound in the right chest wall mastectomy site. The tissue appears healthy, with no evidence of necrosis. There is good granulation tissue present. Packing was removed, revealing small amounts of mucopurulent discharge. Results Impressions: Chest X-Ray 10/27/17 10:28 IMPRESSION: No acute infiltrates Assessment & Plan - Diagnosis (1) Postoperative infection of breast incision Qualifiers: Encounter type: subsequent encounter Qualified Code(s): T81.4XXD - Infection following a procedure, subsequent encounter Is this a current diagnosis for this admission?: Yes - Inpatient Certification Based on my medical assessment, after consideration of the patient's comorbidities, presenting symptoms, or acuity I expect that the services needed warrant INPATIENT care.: Yes I certify that my determination is in accordance with my understanding of Medicare's requirements for reasonable and necessary INPATIENT services [42 CFR 412.3e].: Yes - Plan Summary Plan Summary: There is a 66-year-old female with a right chest wall infection after mastectomy. Patient's wound is looking better today. Continue antibiotics. Damp to dry dressing changes twice daily. Repeat labs today. Awaiting cultures.
[2017-10-28 12:13] LABS: ABSOLUTE BASOPHILS # (AUTO) 0.1 10^3/uL (0.0-0.2); ABSOLUTE EOSINOPHILS # (AUTO) 0.1 10^3/uL (0.0-0.6); ABSOLUTE LYMPHOCYTES (AUTO) 1.6 10^3/uL (0.5-4.7); ABSOLUTE MONOCYTES (AUTO) 1.2 10^3/uL (0.1-1.4); BASOPHILS % (AUTO) 0.9 % (0-2); EOSINOPHILS % (AUTO) 1.4 % (0-6); HEMATOCRIT 25.2 % (36.0-47.0); HEMOGLOBIN 8.7 g/dL (12.0-15.5); LYMPHOCYTES % (AUTO) 19.7 % (13-45); MEAN CORPUSCULAR HEMOGLOBIN 32.6 pg (27.0-33.4); MEAN CORPUSCULAR HGB CONC 34.4 g/dL (32.0-36.0); MEAN CORPUSCULAR VOLUME 95 fl (80-97); MONOCYTES % (AUTO) 15.6 % (3-13); PLATELET COUNT 353 10^3/uL (150-450); RED BLOOD COUNT 2.66 10^6/uL (3.72-5.28); RED CELL DISTRIBUTION WIDTH 13.3 % (11.5-14.0); SEGMENTED NEUTROPHILS % (AUTO) 62.4 % (42-78); TOTAL CELLS COUNTED % (AUTO) 100 %
[2017-10-28 12:26] LABS: ANION GAP 10 (5-19); BLOOD UREA NITROGEN 11 mg/dL (7-20); CALCIUM 8.3 mg/dL (8.4-10.2); CARBON DIOXIDE 24 mmol/L (22-30); CHLORIDE 103 mmol/L (98-107); GLUCOSE 129 mg/dL (75-110); POTASSIUM 4.2 mmol/L (3.6-5.0); SODIUM 136.8 mmol/L (137-145)
[2017-10-28] MEDS ORDERED: ATORVASTATIN CALCIUM 20 MG TABLET PO SCH (22:00)
[2017-10-29] MEDS: PIPERACILLIN SODIUM/TAZOBACTAM 3.375 GM in NORMAL SALINE 100 ML IV SCH (03:24)
--- NOTE | 2017-10-29 11:53 | PDOC PROGRESS REPORT ---
Subjective Progress Note for:: 10/29/17 Subjective:: Feels much better. Reason For Visit: DEHYDRATION,WOUND INFECTION,HYPOTENSION Physical Exam Vital Signs: Temp Pulse Resp BP Pulse Ox 98 F 76 16 142/55 H 100 10/29/17 08:00 10/29/17 08:00 10/29/17 08:00 10/29/17 08:00 10/29/17 08:00 Intake & Output 10/28/17 10/29/17 10/30/17 06:59 06:59 06:59 Intake Total 3065 3462 Balance 3065 3462 Weight 110.9 kg 114.9 kg General appearance: PRESENT: no acute distress, cooperative Respiratory exam: PRESENT: clear to auscultation jennifer, other - Mastectomy site wound is very clean with no significant drainage. No seropurulent discharge. Cardiovascular exam: PRESENT: RRR GI/Abdominal exam: PRESENT: soft - Soft, nondistended, nontender to palpation. Results Laboratory Results: 10/28/17 11:55 10/28/17 11:55 10/28/17 10/28/17 11:55 11:55 WBC 8.0 RBC 2.66 L Hgb 8.7 L Hct 25.2 L MCV 95 MCH 32.6 MCHC 34.4 RDW 13.3 Plt Count 353 Seg Neutrophils % 62.4 Lymphocytes % 19.7 Monocytes % 15.6 H Eosinophils % 1.4 Basophils % 0.9 Absolute Neutrophils 5.0 Absolute Lymphocytes 1.6 Absolute Monocytes 1.2 Absolute Eosinophils 0.1 Absolute Basophils 0.1 Sodium 136.8 L Potassium 4.2 Chloride 103 Carbon Dioxide 24 Anion Gap 10 BUN 11 Creatinine 0.82 Est GFR ( Amer) > 60 Est GFR (Non-Af Amer) > 60 Glucose 129 H Calcium 8.3 L Magnesium 2.3 Impressions: Chest X-Ray 10/27/17 10:28 IMPRESSION: No acute infiltrates Assessment & Plan - Diagnosis (1) Postoperative infection of breast incision Qualifiers: Encounter type: subsequent encounter Qualified Code(s): T81.4XXD - Infection following a procedure, subsequent encounter Is this a current diagnosis for this admission?: Yes Plan: Has markedly improved on dressing changes and antibiotics. Her cultures did not grow out any organisms yet but I feel that with her initial presentation of seropurulent drainage and the leukocytosis that she did have a component of infection. Will discharge patient home with resumption of her wound VAC at home. Will have her follow-up at [facility] early next week. We will keep her on p.o. Keflex over the weekend until her follow-up.
--- NOTE | 2017-10-29 12:08 | DISCHARGE SUMMARY E ---
Discharge Summary NAME: CHUCHO HERNANDEZ : 1950 AGE: 66Y ADMITTED: 10/27/2017 DISCHARGED: 10/29/2017 DISCHARGE DIAGNOSES: 1. Dehydration. 2. Mastectomy site wound infection. HOSPITAL COURSE: The patient was treated with IV fluids and IV antibiotics and local wound care with dry dressing. Her wound markedly improved during her hospital stay. It no longer had seropurulent drainage. It appeared very clean. Patient responded well with IV fluids and was feeling very well at the time of discharge. Her cultures still had not grown out an organism at the time of discharge but Gram stain did show Gram-positive cocci. Her white blood cell count returned to normal by the time of discharge. Patient is now being discharged to home in good condition. She is to have the wound VAC replaced upon discharge and she is to follow up with Dr. Arteaga early next week. She is encouraged to stay active. She is to call us for any problems such as redness, foul-smelling discharge, fever, abdominal pain, or diarrhea. She may resume all of her home medications. Additional medications Keflex 500 mg 1 p.o. 4 times daily for 5 days. DICTATING PHYSICIAN: YANI MADRIGAL M.D. [id number] PHY#: [id number] ID: [id number] JOB#: [id number] ACCT: [id number] cc:Jl MORE N.P. > MOHAN
[2017-10-29 12:46] VITALS: BP 142/55
--- NOTE | 2017-12-04 00:26 | PDOC H&P ---
History of Present Illness Admission Date/PCP: ESMER GARNER MD Patient complains of: Generalized weakness and fever History of Present Illness: CHUCHO HERNANDEZ is a 66 year old female with right breast cancer status post mastectomy just over a month ago complicated by necrotic wound edges requiring debridement and placement of a wound VAC couple weeks ago. Patient has noted generalized weakness along with fever up to 102 in the past several days. She also noted increased output from her wound VAC and wound VAC dysfunction with disrupted prolonged periods without suction in the past several days. She denies any significant cough nor generalized body aches nor abdominal pain nor diarrhea nor dysuria. No one else in the household is sick. She has had some nausea and poor appetite. She is on a diuretic at home. Past Medical History Cardiac Medical History: Reports: Hypertension Denies: Coronary Artery Disease, Myocardial Infarction Pulmonary Medical History: Denies: Asthma, Bronchitis, Chronic Obstructive Pulmonary Disease (COPD), Pneumonia Neurological Medical History: Denies: Seizures Musculoskeltal Medical History: Denies: Arthritis Hematology: Denies: Anemia Past Surgical History Past Surgical History: Reports: Mastectomy - Right sided mastectomy (09/16/2017) Social History Smoking Status: Never Smoker Family History Family History: Reviewed & Not Pertinent Parental Family History Reviewed: No Children Family History Reviewed: No Sibling(s) Family History Reviewed.: No Medication/Allergy Home Medications: Atorvastatin Calcium [Lipitor 20 mg Tablet] 1 tab PO DAILY 09/08/17 Gabapentin 1 cap PO BID 09/08/17 Lisinopril/Hydrochlorothiazide [Lisinopril-Hctz 10-12.5 mg Tab] 1 tab PO DAILY 09/08/17 Ketorolac Tromethamine [Toradol 10 mg Tablet] 10 mg PO Q6HP PRN #20 tablet 09/16 Allergies/Adverse Reactions: No Known Allergies Allergy (Verified 06/22/15 16:10) Physical Exam Vital Signs: Temp Pulse Resp BP Pulse Ox 98.1 F 71 28 H 109/48 L 100 10/27/17 12:00 10/27/17 08:44 10/27/17 12:01 10/27/17 12:01 10/27/17 12:01 Intake & Output 10/26/17 10/27/17 10/28/17 06:59 06:59 06:59 Weight 109.4 kg General appearance: PRESENT: no acute distress, cooperative Eye exam: PRESENT: conjunctiva pink Respiratory exam: PRESENT: clear to auscultation jennifer, other - Right-sided mastectomy site with the open wound medially with seropurulent drainage. No necrotic debris. Undermining at the mastectomy site but no loculated pockets. No significant surrounding erythema. The base of the wound has exudate. Cardiovascular exam: PRESENT: RRR GI/Abdominal exam: PRESENT: other - Soft, nondistended, nontender to palpation. Extremities exam: PRESENT: other - No tenderness and no redness. No rash Neurological exam: PRESENT: alert, awake Psychiatric exam: PRESENT: appropriate affect Skin exam: PRESENT: warm Results Laboratory Results: 10/27/17 09:32 10/27/17 09:32 10/27/17 10/27/17 10/27/17 09:32 09:32 09:32 WBC 18.5 H RBC 2.98 L Hgb 9.5 L Hct 28.2 L MCV 95 MCH 31.8 MCHC 33.6 RDW 13.3 Plt Count 372 Seg Neutrophils % 84.1 H Lymphocytes % 5.5 L Monocytes % 9.1 Eosinophils % 0.7 Basophils % 0.6 Absolute Neutrophils 15.6 H Absolute Lymphocytes 1.0 Absolute Monocytes 1.7 H Absolute Eosinophils 0.1 Absolute Basophils 0.1 VBG pH VBG pCO2 VBG HCO3 VBG Base Excess Sodium 132.9 L Potassium 3.4 L Chloride 96 L Carbon Dioxide 24 Anion Gap 13 BUN 21 H Creatinine 1.11 Est GFR ( Amer) > 60 Est GFR (Non-Af Amer) 49 L Glucose 142 H Lactic Acid 1.1 Calcium 9.0 Total Bilirubin 0.6 AST 21 ALT 23 Alkaline Phosphatase 62 Total Protein 6.5 Albumin 3.1 L Urine Color Urine Appearance Urine pH Ur Specific [place] Urine Protein Urine Glucose (UA) Urine Ketones Urine Blood Urine Nitrite Ur Leukocyte Esterase Urine WBC (Auto) Urine RBC (Auto) 10/27/17 10/27/17 09:32 10:20 WBC RBC Hgb Hct MCV MCH MCHC RDW Plt Count Seg Neutrophils % Lymphocytes % Monocytes % Eosinophils % Basophils % Absolute Neutrophils Absolute Lymphocytes Absolute Monocytes Absolute Eosinophils Absolute Basophils VBG pH 7.36 VBG pCO2 49.7 VBG HCO3 27.6 VBG Base Excess 1.7 Sodium Potassium Chloride Carbon Dioxide Anion Gap BUN Creatinine Est GFR ( Amer) Est GFR (Non-Af Amer) Glucose Lactic Acid Calcium Total Bilirubin AST ALT Alkaline Phosphatase Total Protein Albumin Urine Color YELLOW Urine Appearance CLEAR Urine pH 5.0 Ur Specific [place] 1.006 Urine Protein NEGATIVE Urine Glucose (UA) NEGATIVE Urine Ketones NEGATIVE Urine Blood NEGATIVE Urine Nitrite NEGATIVE Ur Leukocyte Esterase NEGATIVE Urine WBC (Auto) 2 Urine RBC (Auto) 9 Impressions: Chest X-Ray 10/27/17 10:28 IMPRESSION: No acute infiltrates Assessment & Plan - Diagnosis (1) Postoperative infection of breast incision Qualifiers: Encounter type: subsequent encounter Qualified Code(s): T81.4XXD - Infection following a procedure, subsequent encounter Is this a current diagnosis for this admission?: Yes Plan: Suspect that the wound VAC dysfunction led to possible bacteremia in the last several days. Will admit the patient for observation. We will initially manage her with wet-to-dry normal saline dressings and IV antibiotics. Suspect that with her illness she became dehydrated compounded by her diuretic and her anemia. will place her on IV fluids.
== END 2017-10-29 13:36 | disposition home or self-care (01) | DRG 863 ==
LOC: ER 08:36 → INTOOBSV 13:46 → EH 13:46 → OBSVTOIN 13:46 → 4W 17:10 → OBSVTOIN 10-28 11:45 → UNDODISIN 10-29 13:31
PROVIDERS: ADMIT Surgery; ATTEND Surgery
DX: T81.4XXA Infection following a procedure, initial encounter (principal); E86.0 Dehydration; Z60.2 Problems related to living alone; I10 Essential (primary) hypertension; I95.9 Hypotension, unspecified; Z90.10 Acquired absence of unspecified breast and nipple; Z85.3 Personal history of malignant neoplasm of breast; Z79.899 Other long term (current) drug therapy
CPT/HCPCS: 36415; 71045; 71046; 80048; 80053; 81001; 82803; 83605; 83735; 85025; 85610; 87040; 87070; 87077; 87086; 87205; 93005; 93010; G0378; J1650; J2543; J3480; J7030

== ENCOUNTER 2017-12-28 08:43 | Day surgery (SDC) | payer MEDICARE, MEDICAID ==
[~2017-12-28 08:43] MED LIST changes: +ACETAMINOPHEN 325 MG TABLET PO PRN; +CEFAZOLIN 1 GM/D5W RTU 1 GM/50 ML RTUPB IV ONE; -LACTATED RINGERS 1000 ML IV PRN; -LIDOCAINE 0.5% INJ-PF (5 MG/ML) 50 ML SDV SUBCUT PRN; -LIDOCAINE 4% TRANSPARENT DRESSING 5 GM KIT TP PRN
[2017-12-28 09:35] LABS: HEMATOCRIT 34.8 % (36.0-47.0); HEMOGLOBIN 11.7 g/dL (12.0-15.5); MEAN CORPUSCULAR HEMOGLOBIN 31.4 pg (27.0-33.4); MEAN CORPUSCULAR HGB CONC 33.7 g/dL (32.0-36.0); MEAN CORPUSCULAR VOLUME 93 fl (80-97); PLATELET COUNT 333 10^3/uL (150-450); RED BLOOD COUNT 3.73 10^6/uL (3.72-5.28); RED CELL DISTRIBUTION WIDTH 14.9 % (11.5-14.0); WHITE BLOOD COUNT 9.8 10^3/uL (4.0-10.5)
--- NOTE | 2017-12-28 11:04 | RADIOLOGY REPORT (SQ) ---
EXAM DESCRIPTION: CHEST SINGLE VIEW COMPLETED DATE/TIME: 12/28/2017 10:19 am REASON FOR STUDY: PREOP COMPARISON: 10/27/2017 EXAM PARAMETERS: NUMBER OF VIEWS: One view. TECHNIQUE: Single frontal radiographic view of the chest acquired. RADIATION DOSE: NA LIMITATIONS: None. FINDINGS: LUNGS AND PLEURA: No opacities, masses or pneumothorax. No pleural effusion. MEDIASTINUM AND HILAR STRUCTURES: No masses. Contour normal. HEART AND VASCULAR STRUCTURES: The configuration of the heart mediastinal structures is unchanged. C ardiac silhouette is at the upper limits of normal in size P BONES: No acute findings. HARDWARE: Surgical clips are again identified overlying the right lower hemithorax. OTHER: No other significant finding. IMPRESSION: NO ACUTE RADIOGRAPHIC FINDING IN THE CHEST. TECHNICAL DOCUMENTATION: JOB ID: [id number] [employer]- All Rights Reserved Reading location - IP/workstation name: [email or web address]
[2017-12-28] MEDS ORDERED: LIDOCAINE 1%/EPINEPHRINE INJ 20 ML VIAL ONE (11:33)
[2017-12-28] MEDS ORDERED: FENTANYL CITRATE INJ/PF 100 MCG/2 ML AMPUL ONE ×2 (11:35→13:48)
[2017-12-28] MEDS ORDERED: MIDAZOLAM 2 MG/2 ML INJ ONE (11:35)
[2017-12-28] MEDS ORDERED: ONDANSETRON HCL INJ/PF 4 MG/2 ML SDV ONE (11:36)
[2017-12-28] MEDS ORDERED: PROPOFOL INJ 200 MG/20 ML VIAL IV ONE (11:36)
[2017-12-28] MEDS ORDERED: MORPHINE SULFATE 10 MG/ML INJ IV PRN (12:22)
[2017-12-28] MEDS ORDERED: FENTANYL CITRATE INJ/PF 100 MCG/2 ML AMPUL IV PRN ×3 (12:22)
[2017-12-28] MEDS ORDERED: MEPERIDINE HCL/PF INJ 25 MG/1 ML DISP.SYRIN IV PRN (12:22)
[2017-12-28] MEDS ORDERED: PROMETHAZINE HCL INJ 25 MG/1 ML VIAL IV PRN ×2 (12:22)
[2017-12-28] MEDS ORDERED: DIPHENHYDRAMINE HCL 50 MG/ML VIAL IV PRN (12:22)
[2017-12-28] MEDS ORDERED: OXYCODONE-ACETAMINOPHEN 5-325 MG TABLET PO PRN ×2 (12:22)
--- NOTE | 2017-12-28 12:54 | Discharge Summary ---
Discharge Summary (SDC) - Discharge Final Diagnosis: Breast carcinoma Date of Surgery: 12/28/17 Discharge Date: 12/28/17 Condition: Good Treatment or Instructions: May use port; follow-up with [facility] medical oncology as previously scheduled. May take Tylenol or Motrin as needed pain Referrals: ESMER GARNER MD [Primary Care Provider] - Discharge Diet: As Tolerated Discharge Activity: Activity As Tolerated Home Care Assistance: None Needed Report the Following to Your Physician Immediately: Shortness of Breath, Increase in Pain, Fever over 101 Degrees
--- NOTE | 2017-12-28 13:01 | Operative Report ---
Operative Report DATE OF SURGERY: 12/28/17 PREOPERATIVE DIAGNOSIS: Breast carcinoma status post right mastectomy POSTOPERATIVE DIAGNOSIS: Same OPERATION: 1. Focused ultrasound of the left neck with venous access left internal jugular vein. 2. Placement of single-chamber [id number] catheter left subclavian position. 3. Interpretation of intraoperative fluoroscopy SURGEON: LILY HENRY ANESTHESIA: LMAC TISSUE REMOVED OR ALTERED: None COMPLICATIONS: None ESTIMATED BLOOD LOSS: Scant INTRAOPERATIVE FINDINGS: See below PROCEDURE: Patient was taken from the holding area to the main operating room where LMAC anesthesia was induced through a left upper extremity peripheral IV access. Arms were tucked at the side, neck and chest wall were prepped and draped in sterile fashion after the right mastectomy wound was covered with an Ioban dressing. Surgical plan surgical timeout were conducted. Real-time ultrasonography was used to scan the left neck. The left internal jugular vein was felt to be suitable for cannulation. The skin was Tiffanie times 1% plain lidocaine, and using the microneedle and wire, the left internal jugular vein was cannulated successfully. A wire was threaded into position. A suitable site for placement of the port was chosen in the left subclavian position. The skin was Tiffanie times 1% plain lidocaine, a 4 cm incision was made with a #10 blade, and a port pocket developed large enough to accommodate a single-chamber port was developed with electrocautery and blunt dissection. The catheter was trimmed to the appropriate length, tunnel between the 2 wounds with the tunneling device, attached to the port with the plastic ring. Under fluoroscopic guidance, the micro wire was switched over to conventional 0.030 inch guidewire. Under fluoroscopic guidance, the 9 Nigerian dilator introducer sheath were threaded over the guidewire, guidewire dilator removed leaving the sheath in position. We advanced the catheter into the sheath, and pulled the sheath out leaving the catheter in good position with the tip in the innominate vein. There was excellent aspiration and flushed through the Infuse- a-Port using the Leo needle with dilute heparinized saline. Of note canal for the case the patient did become tachycardic and variable PVCs. She never lost blood pressure significantly and saturations remain good. We completed the operation by closing the incisions with 3-0 Vicryl suture, benzoin and Steri-Strips. We then undraped the patient, and proceeded under the direction of Dr. Lopez to give the patient 100 mg of lidocaine, and subsequently the patient's heart rate to the low 100s. She was awake and following commands. She was taken to recovery room otherwise stable condition where chest x-ray and EKG will be obtained.
[2017-12-28] MEDS ORDERED: METOPROLOL TARTRATE PF/INJ 5 MG/5 ML SDV IV ONE (13:06)
--- NOTE | 2017-12-28 13:24 | RADIOLOGY REPORT (SQ) ---
EXAM DESCRIPTION: CHEST SINGLE VIEW COMPLETED DATE/TIME: 12/28/2017 1:10 pm REASON FOR STUDY: intra op tachycardia COMPARISON: None. EXAM PARAMETERS: NUMBER OF VIEWS: One view. TECHNIQUE: Single frontal radiographic view of the chest acquired. RADIATION DOSE: NA LIMITATIONS: None. FINDINGS: LUNGS AND PLEURA: No opacities, masses or pneumothorax. No pleural effusion. MEDIASTINUM AND HILAR STRUCTURES: No masses. Contour normal. HEART AND VASCULAR STRUCTURES: Heart normal in size. Normal vasculature. BONES: No acute findings. HARDWARE: Interval insertion of a left jugular Port-A-Cath with tip in the left brachiocephalic vein. OTHER: No other significant finding. IMPRESSION: Interval insertion of a left jugular Port-A-Cath with tip in the left brachiocephalic ve in. No pneumothorax. TECHNICAL DOCUMENTATION: JOB ID: [id number] [employer]- All Rights Reserved Reading location - IP/workstation name: [email or web address]
[2017-12-28] MEDS ORDERED: DILTIAZEM HCL INJ 25 MG/5 ML VIAL ONE (13:29)
--- NOTE | 2017-12-28 14:32 | RADIOLOGY REPORT (SQ) ---
EXAM DESCRIPTION: FLUORO/CV PLACEMENT COMPLETED DATE/TIME: 12/28/2017 1:18 pm REASON FOR STUDY: PORTACATH PLCMT LEFT SIDE ASST WITH FLUORO IN OR C50.911 MALIGNANT NEOPLASM OF UN SP SITE OF RIGHT FEMALE ZAID COMPARISON: None. FLUOROSCOPY TIME: 0.1 minute 2 images saved to PACS. TECHNIQUE: Intra-operative images acquired during surgical procedure to evaluate progress. NUMBER OF IMAGES: 2 LIMITATIONS: None. FINDINGS: Selected images from left-sided port placement. Tip is not visualized in the [id number] w. IMPRESSION: IMAGE(S) OBTAINED DURING PROCEDURE. COMMENT: Quality ID 145: Final reports for procedures using fluoroscopy that document radiation exp osure indices, or exposure time and number of fluorographic images (if radiation exposure indices are not available) Please consult full operative report of the attending physician for description of the procedure. TECHNICAL DOCUMENTATION: JOB ID: [id number] [employer]- All Rights Reserved Reading location - IP/workstation name: [email or web address]
[2017-12-28] MEDS ORDERED: ZOLPIDEM TARTRATE 5 MG TABLET PO PRN (15:52)
[2017-12-28] MEDS ORDERED: MAGNESIUM HYDROXIDE SUSP 30 ML UDCUP PO PRN (15:52)
[2017-12-28] MEDS ORDERED: ONDANSETRON 4 MG TAB.RAPDIS PO PRN (15:52)
[2017-12-28] MEDS ORDERED: ACETAMINOPHEN 325 MG TABLET PO PRN (15:52)
[2017-12-28] MEDS ORDERED: MAG HYDROX/AL HYDROX/SIMETH SUSP 30 ML UDCUP PO PRN (15:52)
[2017-12-28 16:08] LABS: POTASSIUM 4.8 mmol/L (3.6-5.0); SODIUM 139.6 mmol/L (137-145)
[2017-12-28 16:55] VITALS: BP 153/102
[2017-12-28 16:57] LABS: CREATINE KINASE MB 0.85 ng/mL (<4.55)
[2017-12-28 16:59] LABS: TROPONIN I < 0.012 ng/mL
[2017-12-28] MEDS ORDERED: DOCUSATE SODIUM 100 MG CAPSULE PO SCH (18:00)
[2017-12-28] MEDS ORDERED: FAMOTIDINE 20 MG TABLET PO SCH (22:00)
[2017-12-28] MEDS ORDERED: GABAPENTIN 400 MG CAPSULE PO SCH (22:00)
--- NOTE | 2017-12-28 23:19 | EKG REPORT ---
SEVERITY:- NORMAL ECG - SINUS RHYTHM : Confirmed by: Bina Mata 28-Dec-2017 23:18:12
--- NOTE | 2017-12-28 23:19 | EKG REPORT ---
SEVERITY:- ABNORMAL ECG - ATRIAL FIBRILLATION : Confirmed by: Bina Mata 28-Dec-2017 23:18:22
[2017-12-29] MEDS ORDERED: ENOXAPARIN SODIUM INJ 40 MG/0.4 ML DISP.SYRIN SUBCUT SCH (10:00)
[2017-12-29] MEDS ORDERED: ATORVASTATIN CALCIUM 10 MG TABLET PO SCH (10:00)
[2017-12-29] MEDS ORDERED: (PENDING PHARMACY ID) (Lisinopril/Hydrochlorothiazide [Lisinopril-Hctz 20-12.5 Mg Tab] 1 T PO SCH (10:00)
[2017-12-29] MEDS ORDERED: ASPIRIN 81 MG TABLET, ENT COATED PO SCH (10:00)
== END 2017-12-28 17:10 | disposition home or self-care (01) ==
LOC: OROUT 08:43
PROVIDERS: ATTEND Surgery
DX: C50.911 Malignant neoplasm of unspecified site of right female breast (principal); E78.00 Pure hypercholesterolemia, unspecified; E66.9 Obesity, unspecified; F17.210 Nicotine dependence, cigarettes, uncomplicated; I25.10 Atherosclerotic heart disease of native coronary artery without angina pectoris; R06.02 Shortness of breath; Z79.899 Other long term (current) drug therapy; Z79.82 Long term (current) use of aspirin; Z68.41 Body mass index [BMI] 40.0-44.9, adult
CPT/HCPCS: 36561; 36415; 82553; 82550; 80051; 83735; 84132; 85027; 84484; 71045; 77001; 93005; 93010; C1752; C1788; J2250; J0690; J3010; J3490 ×3; J2405; J2704; J1642; 532

== ENCOUNTER → 2018-05-18 | Outpatient (CLI) | payer MEDICARE, MEDICAID ==
--- NOTE | 2018-05-18 13:30 | WOMENS IMAGING REPORT ---
EXAM DESCRIPTION: LEFT DIAGNOSTIC MAMMO W/CAD COMPLETED DATE/TIME: 05/18/2018 11:37 am REASON FOR STUDY: Z85.3 PERSONAL HISTORY OF MALIGNANT NEOPLASM OF BREAST Z85.3 PERSONAL HISTORY OF MALIGNANT NEOPLASM OF BREAST COMPARISON: Multiple since 2016 TECHNIQUE: Standard craniocaudal, 90 mediolateral and mediolateral oblique images of the left breas t recorded with digital acquisition. Post right mastectomy in 2018 LIMITATIONS: None. FINDINGS: BREAST LATERALITY: Left MASSES: No suspicious masses. CALCIFICATIONS: No new or suspicious calcifications. ARCHITECTURAL DISTORTION: None. DEVELOPING DENSITY: None. ASYMMETRY: None noted. OTHER: No other significant findings. Read with the assistance of CAD. .[facility] - R2 Cenova Version 1.3 .[facility] - R2 Cenova Version 2.1 .[facility] - R2 Cenova Version 2.4 .[facility] [place] - R2 Cenova Version 2.4 .[facility] - R2 Perm[employer]ator Version 9.2 IMPRESSION: No mammographic evidence for malignancy left breast BREAST DENSITY: b. There are scattered areas of fibroglandular density. BIRAD: 2 Benign findings. RECOMMENDATION: RECOMMENDED FOLLOW UP: Please continue left breast mammography in May 2019 SPECIFIC INTERVENTION/IMAGING/CONSULTATION RECOMMENDED:No additional intervention/ imaging/consultati on needed at this time. COMMUNICATION:Patient notified by letter COMMENT: The patient has been notified of the results by letter per SA requirements. Additional no tification policies are in place for contacting patient with suspicious or incomplete findings. Quality ID #225: The [employer] recommends an annual screening mammogram for women aged 40 years or over. This facility utilizes a reminder system to ensure that all patients receive reminder letters, and/or direct phone calls for appointments. This includes reminders for routine scr eening mammograms, diagnostic mammograms, or other Breast Imaging Interventions when appropriate. Th is patient will be placed in the appropriate reminder system. The [employer] (ACR) has developed recommendations for screening MRI of the breast s in certain patient populations, to be used in conjunction with mammography. Breast MRI surveillanc e may be appropriate for women with more than 20% lifetime risk of developing breast cancer as deter mined by genetic testing, significant family history of the disease, or history of mantle radiation f or Hodgkins Disease. ACR Practice Guidelines 2008. TECHNICAL DOCUMENTATION: FINDING NUMBER: (1) ASSESSMENT: (1) JOB ID: [id number] [employer]- All Rights Reserved Reading location - IP/workstation name: [email or web address]
== END ==
LOC: WI 11:10
PROVIDERS: ATTEND Surgery
DX: Z08 Encounter for follow-up examination after completed treatment for malignant neoplasm (principal); Z85.3 Personal history of malignant neoplasm of breast; Z90.11 Acquired absence of right breast and nipple

== ENCOUNTER → 2018-07-31 | Outpatient (CLI) | payer MEDICARE ==
--- NOTE | 2018-07-31 13:59 | RADIOLOGY REPORT (SQ) ---
EXAM DESCRIPTION: MRI HEAD COMBO COMPLETED DATE/TIME: 07/31/2018 1:17 pm REASON FOR STUDY: FRONTAL ARREOLA, HX BREAST CA R51 HEADACHE COMPARISON: None. TECHNIQUE: Multiplanar imaging includes noncontrasted T1, T2, FLAIR, diffusion with ADC map and post gadolinium contrast T1 sequences. Images stored on PACS. CONTRAST TYPE AND DOSE: 20 mL Dotarem. RENAL FUNCTION: Not indicated. ACR Type II contrast agent associated with few, if any, unconfounded cases of NSF LIMITATIONS: None. FINDINGS: ANATOMY: No anomalies. Normal vascular flow voids. Pituitary fossa normal. CSF SPACES: Normal in size and contour. No hemorrhage. CEREBRUM: Sulci and gyri normal in size and contour. Dilated prevascular space left centrum semioval e. No evidence of hemorrhage, mass, or extraaxial fluid collection. No abnormal enhancement post cont rast. POSTERIOR FOSSA: No signal alteration. No hemorrhage. No edema, masses, or mass effect. Internal yeimy tory canals, cerebellopontine angles, mastoids normal. No enhancing lesions. No abnormal enhancement post contrast. DIFFUSION IMAGING: Negative for acute or subacute infarction. ORBITS: No masses. Globes normal. PARANASAL SINUSES: No fluid levels. Mucosa normal. OTHER: No other significant finding. IMPRESSION: No evidence of metastatic disease. No significant abnormality. EVIDENCE OF ACUTE STROKE: NO. TECHNICAL DOCUMENTATION: JOB ID: [id number] [employer]- All Rights Reserved Reading location - IP/workstation name: [email or web address]
== END ==
LOC: RAD 12:17
PROVIDERS: ATTEND Internal Medicine Hematology & Oncology
DX: R51 Headache (principal); Z85.3 Personal history of malignant neoplasm of breast
CPT/HCPCS: 82565; 70553; A9576

== ENCOUNTER → 2019-01-20 | Outpatient (CLI) | payer MEDICARE ==
--- NOTE | 2019-01-20 08:46 | RADIOLOGY REPORT (SQ) ---
EXAM DESCRIPTION: CT CHEST WITH COMPLETED DATE/TIME: 01/20/2019 8:29 am REASON FOR STUDY: MALIG NEOPLM OF UPPER-OUTER QUADRANT OF RIGHT FEMALE BREAST C50.411 MALIG NEOPLM OF UPPER-OUTER QUADRANT OF RIGHT FEMALE COMPARISON: None. TECHNIQUE: CT scan of the chest performed using helical scanning technique with dynamic intravenous contrast injection. Images reviewed with lung, soft tissue and bone windows. Reconstructed coronal and sagittal MPR and MIP images reviewed. All images stored on PACS. All CT scanners at this facility use dose modulation, iterative reconstruction, and/or weight based d osing when appropriate to reduce radiation dose to as low as reasonably achievable (ALARA). [facility]: Dose Right [facility]: CareDose [facility]: Dose Right [facility]: Teradose 4D [facility]: [employer] CONTRAST TYPE AND DOSE: contrast/concentration: Isovue 350.00 mg/ml; Total Contrast Delivered: 80.0 ml; Total Saline Delivered: 55.0 ml RENAL FUNCTION: Creatinine 0.8 RADIATION DOSE: CT Rad equipment meets quality standard of care and radiation dose reduction techniq ues were employed. CTDIvol: 18.1 mGy. DLP: 730 mGy-cm. . LIMITATIONS: None. FINDINGS: LUNGS AND PLEURA: No opacities, nodules, masses. No pneumothorax. No effusions. HILAR AND MEDIASTINAL STRUCTURES: No identified masses or abnormal nodes. HEART AND VASCULAR STRUCTURES: No aneurysm or dissection. No central pulmonary emboli. No pericardi al effusion. HARDWARE: None in the chest. UPPER ABDOMEN: No significant findings. Limited exam. THYROID AND OTHER SOFT TISSUES: No masses. No adenopathy. BONES: No significant finding. OTHER: Prior right mastectomy. IMPRESSION: No evidence of metastatic disease in the chest. TECHNICAL DOCUMENTATION: JOB ID: [id number] Quality ID # 436: Final reports with documentation of one or more dose reduction techniques (e.g., Au tomated exposure control, adjustment of the mA and/or kV according to patient size, use of iterative reconstruction technique) 2010 [email or web address]- All Rights Reserved Reading location - IP/workstation name: [email or web address]
== END ==
LOC: RAD 07:57
PROVIDERS: ATTEND Internal Medicine Hematology & Oncology
DX: C50.411 Malignant neoplasm of upper-outer quadrant of right female breast (principal)
CPT/HCPCS: 71260; 82565

== ENCOUNTER → 2019-04-05 | Outpatient (CLI) | payer MEDICAID, MEDICARE ==
--- NOTE | 2019-04-05 13:00 | RADIOLOGY REPORT (SQ) ---
EXAM DESCRIPTION: CT ABD/PELVIS WITH IV ORAL COMPLETED DATE/TIME: 04/05/2019 10:06 am REASON FOR STUDY: BREAST CA (C50.411), ELEVATED LFTS (R74.8) C50.411 MALIG NEOPLM OF UPPER-OUTER QU ADRANT OF RIGHT FEMALE R74.8 ABNORMAL LEVELS OF OTHER SERUM ENZYMES COMPARISON: CT chest 01/20/2019 TECHNIQUE: CT scan of the abdomen and pelvis performed using helical scanning technique with dynamic intravenous contrast injection. Patient drank oral contrast. Images reviewed with lung, soft tissue , and bone windows. Reconstructed coronal and sagittal MPR images reviewed. Delayed images for evalua tion of the urinary system also acquired. All images stored on PACS. All CT scanners at this facility use dose modulation, iterative reconstruction, and/or weight based d osing when appropriate to reduce radiation dose to as low as reasonably achievable (ALARA). [facility]: Dose Right [facility]: CareDose [facility]: Dose Right [facility]: Teradose 4D [facility]: [employer] CONTRAST TYPE AND DOSE: contrast/concentration: Isovue 350.00 mg/ml; Total Contrast Delivered: 100.0 ml; Total Saline Delivered: 72.0 ml RENAL FUNCTION: Creatinine 1.1 RADIATION DOSE: CT Rad equipment meets quality standard of care and radiation dose reduction techniq ues were employed. CTDIvol: 30.6 - 30.6 mGy. DLP: 3406 mGy-cm.. LIMITATIONS: None. FINDINGS: LOWER CHEST: No significant findings. No nodules or infiltrates. LIVER: Normal size. No masses. No dilated ducts. SPLEEN: Normal size. No focal lesions. PANCREAS: No masses. No significant calcifications. No adjacent inflammation or peripancreatic fluid collections. Pancreatic duct not dilated. GALLBLADDER: No identified stones by CT criteria. No inflammatory changes to suggest cholecystitis. ADRENAL GLANDS: No significant masses or asymmetry. RIGHT KIDNEY AND URETER: No solid masses. No significant calcifications. No hydronephrosis or hyd roureter. LEFT KIDNEY AND URETER: No solid masses. No significant calcifications. No hydronephrosis or hydr oureter. AORTA AND VESSELS: No aneurysm. No dissection. Calcified renal arteries, SMA, celiac without gross h igh-grade stenosis. RETROPERITONEUM: No retroperitoneal adenopathy, hemorrhage or masses. BOWEL AND PERITONEAL CAVITY: Patient drank oral contrast. No CT evidence of bowel obstruction. No f ree intraperitoneal air or fluid. Small hiatal hernia. Sigmoid colon diverticuli without CT signs o f acute diverticulitis APPENDIX: Normal. PELVIS: No mass. No free fluid. Normal bladder. ABDOMINAL WALL: No masses. No hernias. BONES: No significant or acute findings. OTHER: Post right mastectomy IMPRESSION: NO SIGNIFICANT OR ACUTE FINDING IN THE ABDOMEN OR PELVIS ON CT SCAN WITH IV CONTRAST. TECHNICAL DOCUMENTATION: JOB ID: [id number] Quality ID # 436: Final reports with documentation of one or more dose reduction techniques (e.g., Au tomated exposure control, adjustment of the mA and/or kV according to patient size, use of iterative reconstruction technique) 2010 [employer]- All Rights Reserved Reading location - IP/workstation name: [email or web address]
== END ==
LOC: RAD 09:41
PROVIDERS: ATTEND Internal Medicine Hematology & Oncology
DX: C50.411 Malignant neoplasm of upper-outer quadrant of right female breast (principal); R74.8 Abnormal levels of other serum enzymes
CPT/HCPCS: 74177

== ENCOUNTER → 2019-05-20 | Outpatient (CLI) | payer MEDICAID, MEDICARE ==
--- NOTE | 2019-05-20 10:23 | WOMENS IMAGING REPORT ---
EXAM DESCRIPTION: LEFT SCREENING MAMMO W/CAD COMPLETED DATE/TIME: 05/20/2019 9:49 am REASON FOR STUDY: Z12.31 SCREENING MAMMO Z12.31 ENCNTR SCREEN MAMMOGRAM FOR MALIGNANT NEOPLASM OF B RE COMPARISON: Multiple since 2016 EXAM PARAMETERS: Standard craniocaudal and mediolateral oblique views of the left breast recorded u sing digital acquisition. Post right mastectomy in 2018. Read with the assistance of CAD. .[facility] - [employer] Version 9.2 LIMITATIONS: None. FINDINGS: BREAST: left Findings present which are benign by mammographic criteria. No suspicious masses, calcifications or a rchitectural distortion. Pertinent benign findings: Previously biopsied benign smooth round 11 mm nodule in the left central b reast. Benign mammographic findings may include one or more of the following: Smooth masses, popcorn/rim/co arse calcifications, asymmetries, post-procedure changes, and lesions with long-standing stability. IMPRESSION: NORMAL MAMMOGRAM. BIRADS 2. BREAST DENSITY: a. The breasts are almost entirely fatty. BIRAD: ASSESSMENT: 2 BENIGN FINDING(S) RECOMMENDATION: RECOMMENDATION: ROUTINE SCREENING. COMMENT: The patient has been notified of the results by letter per SA requirements. Additional no tification policies are in place for contacting patient with suspicious or incomplete findings. Quality ID #225: The [employer] recommends an annual screening mammogram for women aged 40 years or over. This facility utilizes a reminder system to ensure that all patients receive reminder letters, and/or direct phone calls for appointments. This includes reminders for routine scr eening mammograms, diagnostic mammograms, or other Breast Imaging Interventions when appropriate. Th is patient will be placed in the appropriate reminder system. TECHNICAL DOCUMENTATION: FINDING NUMBER: (1) ASSESSMENT: (1) JOB ID: [id number] 2010 [employer]- All Rights Reserved Reading location - IP/workstation name: [email or web address]
== END ==
LOC: WI 08:10
PROVIDERS: ATTEND Nurse Practitioner
DX: Z12.31 Encounter for screening mammogram for malignant neoplasm of breast (principal); Z08 Encounter for follow-up examination after completed treatment for malignant neoplasm; Z85.3 Personal history of malignant neoplasm of breast; Z98.82 Breast implant status

== ENCOUNTER 2020-03-21 08:43 | Emergency (ER) | payer MEDICARE ==
--- NOTE | 2020-03-21 09:56 | ER Document Report ---
ED Fall - General Chief Complaint: Fall Stated Complaint: FALL - SHOULDER/ARM INJURY Time Seen by Provider: 03/21/20 09:55 Primary Care Provider: SHRAVAN THURSTON MD [ACTIVE STAFF] - Follow up as needed ANN HILARIO MD [ASSOCIATE] - Follow up as needed Mode of Arrival: Ambulatory Information source: Patient - Consult: Not TV Notes: 03/21/20 09:42 - ED Nursing Note by JOVANNIALYSHA [facility] Num: [id number] : 1950 Patient Age: 69 patient arrives to ED with c/o fall injury. The patient reports her dog knocked her over, patient attempted to catch herself and injured right arm. Pain increases with movement, patient is able to move the affected extremity. Pain radiates into the elbow. Breathing is even and unlabored, speaking in complete a nd clear sentences. MY NOTES 69-year-old female arrives with her son after she fell last night going to the front door around 7:30 PM 1929. She tripped over her 100 pound dog impacting the carpeted floor and causing pain and swelling around the distal clavicle and proximal humeral area. She points to these areas. She is unable to abduct more than 30 degrees. She has good range of motion of her elbow wrist and fingers on the right good capillary refill good sensation positive radial ulnar pulses. She denies any prior history of any fractures. She does not drink or smoke anymore. 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 She denies having any alcohol when she fell last night. TRAVEL OUTSIDE OF THE [place] IN LAST 30 DAYS: No - Related data Allergies/Adverse Reactions: No Known Allergies Allergy (Verified 06/22/15 16:10) Home Medications: letrozole. lisinopril. 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 Drug Abuse: None Lives with: Family Family History: Reviewed & Not Pertinent Patient has suicidal ideation: No Patient has homicidal ideation: No - Past Medical History Cardiac Medical History: Reports: Hx Hypertension Denies: Hx Coronary Artery Disease, Hx Heart Attack Pulmonary Medical History: Denies: Hx Asthma, Hx Bronchitis, Hx COPD, Hx Pneumonia Neurological Medical History: Denies: Hx Cerebrovascular Accident, Hx Seizures Renal/ Medical History: Denies: Hx Peritoneal Dialysis Malignancy Medical History: Reports: Hx Breast Cancer Musculoskeletal Medical History: Denies Hx Arthritis Past Surgical History: Reports: Hx Mastectomy, Hx Tubal Ligation - Immunizations Hx Diphtheria, Pertussis, Tetanus Vaccination: Yes - UNSURE Review of Systems - Review of Systems -: Yes ROS unobtainable due to patient's medical condition Constitutional: No symptoms reported EENT: No symptoms reported Cardiovascular: No symptoms reported Respiratory: No symptoms reported Gastrointestinal: No symptoms reported Genitourinary: No symptoms reported Female Genitourinary: No symptoms reported Musculoskeletal: See HPI, Joint pain, Joint swelling, Muscle pain Skin: No symptoms reported Hematologic/Lymphatic: No symptoms reported Neurological/Psychological: No symptoms reported -: Yes All other systems reviewed and negative Physical Exam - Vital signs Vitals: Temp Pulse Resp BP Pulse Ox 97.4 F 102 H 18 168/69 H 97 03/21/20 08:46 03/21/20 08:46 03/21/20 08:46 03/21/20 08:46 03/21/20 08:46 Interpretation: Normal - General General appearance: Appears well, Alert - HEENT Head: Normocephalic, Atraumatic Eyes: Normal Pupils: PERRL - Respiratory Respiratory status: No respiratory distress Chest status: Nontender Breath sounds: Normal Chest palpation: Normal - Cardiovascular Rhythm: Regular Heart sounds: Normal auscultation Murmur: No - Abdominal Inspection: Normal Distension: No distension Bowel sounds: Normal Tenderness: Nontender Organomegaly: No organomegaly - Rectal Hemorrhoids: Other - Genitourinary Bimanuel exam: Other - deferred - Back Back: Normal, Nontender - Extremities General upper extremity: Tender - Tender right proximal humerus around neck of humerus area. Deltoid has some edema laterally., Normal color, Normal ROM, Normal temperature General lower extremity: Normal inspection, Nontender, Normal color, Normal ROM, Normal temperature, Normal weight bearing. No: Tano's sign - Neurological Neuro grossly intact: Yes Cognition: Normal Orientation: AAOx4 Darlene Coma Scale Eye Opening: Spontaneous Darlene Coma Scale Verbal: Oriented Darlene Coma Scale Motor: Obeys Commands [place] Coma Scale Total: 15 Speech: Normal Motor strength normal: LUE, RUE, LLE, RLE Sensory: Normal - Psychological Associated symptoms: Normal affect, Normal mood - Skin Skin Temperature: Warm Skin Moisture: Dry Skin Color: Normal Course - Vital Signs Vital signs: Temp Pulse Resp BP Pulse Ox 97.4 F 102 H 18 168/69 H 97 03/21/20 08:46 03/21/20 08:46 03/21/20 08:46 03/21/20 08:46 03/21/20 08:46 - Laboratory Results Critical Laboratory Results Reviewed: No Critical Results Attending or Supervising Physician who Reviewed Labs: JORDYN FLOWER JR - Radiology Results Radiology Results Interpreted: 03/21/20 11:46 Fracture of humeral neck of right humerus. This was read by Dr. Munoz. Critical Radiology Results Reviewed: Yes Attending or Supervising Physician who Reviewed Radiology: JORDYN FLOWER JR Critical Care Note - Critical Care Note Comments: I discussed this case with Dr. Thurston orthopedics Discharge - Discharge Clinical Impression: Fall Qualifiers: Encounter type: initial encounter Qualified Code(s): W19.XXXA - Unspecified fall, initial encounter Fracture of humeral head, right, closed Qualifiers: Encounter type: initial encounter Qualified Code(s): S42.291A - Other displaced fracture of upper end of right humerus, initial encounter for closed fracture Condition: Stable Disposition: HOME, SELF-CARE Additional Instructions: RICE ; rest ice compression elevation and follow-up with personal doctor and with orthopedics. Return to ER as needed take medicines as directed. Try to avoid narcotics if possible and use ibuprofen or Aleve [id number]. May use Voltaren gel topically. Avoid trying to abduct or adduct.. That is move your arm up or down because of your fracture. Referrals: ANN HILARIO MD [ASSOCIATE] - Follow up as needed SHRAVAN THURSTON MD [ACTIVE STAFF] - Follow up as needed
--- NOTE | 2020-03-21 11:41 | RADIOLOGY REPORT (SQ) ---
EXAM DESCRIPTION: HUMERUS RIGHT IMAGES COMPLETED DATE/TIME: 03/21/2020 11:17 am REASON FOR STUDY: fall r arm pain COMPARISON: None. NUMBER OF VIEWS: Two views. TECHNIQUE: Two radiographic images were acquired of the right humerus to include elbow and shoulder in at least one projection. LIMITATIONS: None. FINDINGS: MINERALIZATION: Normal. BONES: Comminuted nondisplaced fracture of the surgical neck extending into the greater tuberosity. SOFT TISSUES: No foreign body. OTHER: No other significant finding. IMPRESSION: Fracture of the surgical neck of the humerus. TECHNICAL DOCUMENTATION: JOB ID: [id number] 2010 [employer]- All Rights Reserved Reading location - IP/workstation name: [email or web address]
--- NOTE | 2020-03-21 11:43 | RADIOLOGY REPORT (SQ) ---
EXAM DESCRIPTION: CHEST SINGLE VIEW IMAGES COMPLETED DATE/TIME: 03/21/2020 11:17 am REASON FOR STUDY: fall right arm pain COMPARISON: 12/28/2017 EXAM PARAMETERS: NUMBER OF VIEWS: One view. TECHNIQUE: Single frontal radiographic view of the chest acquired. RADIATION DOSE: NA LIMITATIONS: None. FINDINGS: LUNGS AND PLEURA: No opacities, masses or pneumothorax. No pleural effusion. MEDIASTINUM AND HILAR STRUCTURES: No masses. Contour normal. HEART AND VASCULAR STRUCTURES: Heart normal in size. Normal vasculature. BONES: No acute findings. HARDWARE: None in the chest. OTHER: No other significant finding. IMPRESSION: NO ACUTE RADIOGRAPHIC FINDING IN THE CHEST. TECHNICAL DOCUMENTATION: JOB ID: [id number] 2010 [employer]- All Rights Reserved Reading location - IP/workstation name: [email or web address]
[2020-03-21 12:01] VITALS: BP 126/61
== END 2020-03-21 12:10 | disposition home or self-care (01) ==
LOC: ER 08:43
DX: S42.291A Other displaced fracture of upper end of right humerus, initial encounter for closed fracture (principal); S42.211A Unspecified displaced fracture of surgical neck of right humerus, initial encounter for closed fracture; W01.0XXA Fall on same level from slipping, tripping and stumbling without subsequent striking against object, initial encounter; Y93.89 Activity, other specified; I10 Essential (primary) hypertension; Z79.899 Other long term (current) drug therapy; Z85.3 Personal history of malignant neoplasm of breast
CPT/HCPCS: 71045; 99284